=== PATIENT | male | born 1945 | race Caucasian/White ===

== ENCOUNTER 2020-07-22 07:27 | Inpatient (IN) ==
[~2020-07-22 07:27] MED LIST: Buffered Lidocaine 1% SYRIN 1 ml INTRADERM ONE; Famotidine IV 10 MG/ML 2 ml VIAL (20 mg) IV ONE; Famotidine IV 10 MG/ML 2 ml VIAL (20 mg) ONE; Lactated Ringers 1000 ml BAG 1,000 ML IV SCH; Sodium Citrate/Citric Acid LIQ 15 ML UDC ONE; Sodium Citrate/Citric Acid LIQ 15 ML UDC PO ONE; cefTRIAXone 2 GM ADDV.VIAL ONE
[2020-07-22] MEDS ORDERED: cefTRIAXone 2 GM ADDV.VIAL ONE (07:56)
[2020-07-22] MEDS ORDERED: Buffered Lidocaine 1% SYRIN 1 ml INTRADERM ONE (07:57)
[2020-07-22] MEDS ORDERED: Succinylcholine 200 mg VIAL 20 mg/ml 10 ml VIAL (200 mg) ONE (07:57)
[2020-07-22] MEDS ORDERED: Midazolam 2 mg/2 ml VIAL 1 mg/ml 2 ml VIAL (2 mg) ONE (07:57)
[2020-07-22] MEDS ORDERED: Lidocaine 2% PF 5 ML VIAL ONE (07:57)
[2020-07-22] MEDS ORDERED: Propofol 10 MG/ML 20 ML BTL ONE (07:57)
[2020-07-22] MEDS ORDERED: Ondansetron 4 mg VIAL 2 MG/ML 2 ml VIAL ONE (09:10)
[2020-07-22] MEDS ORDERED: Dexamethasone IV 4 MG/ML VIAL 1 ml VIAL ONE (09:10)
[2020-07-22] MEDS ORDERED: Acetaminophen IV 1 GM/100ML 100 ML ONE (09:13)
[2020-07-22] MEDS ORDERED: EPHEDrine (Pressors) 50 MG/ML VIAL ONE (09:31)
[2020-07-22] MEDS ORDERED: Atropine 1 MG/ML INJ 1 ML VIAL ONE (09:45)
[2020-07-22] MEDS ORDERED: oxyCODONE/Acetamin 5/325 mg TAB PO PRN (11:17)
[2020-07-22] MEDS ORDERED: Lidocaine 2% JELLY 6 ML TOPICAL PRN (11:18)
[2020-07-22] MEDS: NS 0.9% 1000 ml BAG 1,000 ML IV SCH ×2 (11:42→20:05)
[2020-07-22] MEDS ORDERED: Furosemide 20 mg/2 ml IV VIAL IV ONE (18:00)
[2020-07-22] MEDS: Docusate LIQ 100 MG/10 ML UDC PO SCH (22:10)
[2020-07-23] MEDS: NS 0.9% 1000 ml BAG 1,000 ML IV SCH ×2 (02:59→10:28)
[2020-07-23] MEDS: Docusate LIQ 100 MG/10 ML UDC PO SCH (09:48)
[2020-07-23 12:30] VITALS: BP 136/69
== END 2020-07-23 14:24 | DRG 713 ==
LOC: OR 07:27 → SSU 10:52
PROVIDERS: ADMIT Urology; ATTEND Urology